=== PATIENT | male | born 1975 | race Caucasian/White ===

== ENCOUNTER → 2019-08-27 | Day surgery (SDC) | payer OTHER ==
[~2019-08-27] MED LIST: ASPIR 8181 MG PO; CENTRUM SILVER1 EAC3 PO; CLINDAMYCIN HC150 MG PO; DEXAMETHASONE SOD PHOS INJ 4 MG/ML VIAL ONE; DOXYCYCLINE HY100 MG PO; FENTANYL CITRATE/PF 100MCG/2 ML INJ ONE; HYDROGEN PEROXIDE 120 ML BTL ONE; HYZAAR 50-12.51 EACH PO; KETOROLAC TROMETHAMINE 30 MG/ML VIAL ONE; LEVAQUIN500 MG PO; LIDOCAINE HCL 2% LOCAL INJ 5 ML SDV VIAL INJ ONE; MIDAZOLAM HCL 2 MG/2 ML VIAL ONE; NIACIN500 M2 PO; ONDANSETRON HCL INJ 2MG/ML 2ML 2 MG/ML VIAL ONE; POTASSIUM PO; PROPOFOL IV EMULSION 10 MG/ML 20 ML VIAL ONE; SEVOFLURANE INHAL SOLN 250 ML PEN BTL ONE; TRELEGY ELLIPT1 EACH INH; VYTORIN 10-101 EACH PO
[2019-08-27 07:03] LABS: BASOPHILS # (AUTO) 0.1 (0.0-0.1); BASOPHILS % 0.5 % (0.0-1.0); EOSINOPHILS # (AUTO) 0.1 (0.0-0.4); EOSINOPHILS % 1.5 % (0.0-6.0); HEMATOCRIT 46.1 % (38.2-49.6); HEMOGLOBIN 15.9 g/dL (14.0-18.0); LYMPHOCYTES # (AUTO) 2.3 (1.0-3.2); LYMPHOCYTES % 24.4 % (18.0-39.1); MEAN CORPUSCULAR HEMOGLOBIN 32.1 pg (28-32); MEAN CORPUSCULAR HGB CONC 34.5 g/dL (31-35); MEAN CORPUSCULAR VOLUME 92.9 fL (81-99); MONOCYTES # (AUTO) 1.2 (0.2-0.8); MONOCYTES % 13.3 % (4.4-11.3); NEUTROPHILS # (AUTO) 5.6 (2.1-6.9); PLATELET COUNT 181 x10e3/uL (140-360); RED BLOOD COUNT 4.96 x10e6/uL (4.3-5.7); RED CELL DISTRIBUTION WIDTH 14.7 % (11.7-14.4)
[2019-08-27 07:22] LABS: ANION GAP 15.2 mmol/L (8-16); BLOOD UREA NITROGEN 14 mg/dL (7-26); BUN/CREATININE RATIO 18 (6-25); CALCIUM 9.4 mg/dL (8.4-10.2); CARBON DIOXIDE 23 mmol/L (22-29); CHLORIDE 103 mmol/L (98-107); CREATININE, SERUM 0.79 mg/dL (0.72-1.25); EST GLOMERULAR FILTRATION RATE > 60 ML/MIN (60-); GLUCOSE 104 mg/dL (74-118); POTASSIUM 4.2 mmol/L (3.5-5.1); SODIUM 137 mmol/L (136-145)
--- NOTE | 2019-08-27 08:34 | Operative Report ---
DATE OF PROCEDURE: 08/27/2019 SURGEON: J Luis Bradford MD PREOPERATIVE DIAGNOSIS: Abscess of the left inner thigh. POSTOPERATIVE DIAGNOSIS: Abscess of the left inner thigh. PROCEDURE PERFORMED: Incision and drainage of abscess of the left thigh. ANESTHESIA: General. ESTIMATED BLOOD LOSS: Minimal. DRAINS: None. COMPLICATIONS: None. INDICATION AND FINDINGS: A 44-year-old male, admitted for incision and drainage of abscess of the left thigh. INTRAOPERATIVE FINDINGS: Partially drained abscess of the left upper inner thigh with some necrotic tissue in the cavity that was debrided and the cavity packed with gauze. DESCRIPTION OF PROCEDURE: With the patient lying on the operative table in a supine position, after administration of general anesthesia, he was prepped and draped with DuraPrep because he was allergic to iodine. The central core of necrotic skin was excised about the diameter of a dime. The abscess was partially drained and very small amount of pus was found that was cultured. There was some small amount of necrotic tissue in the cavity that was debrided. The cavity was irrigated with peroxide and Betadine and then it was packed with a gauze containing saline only. Sterile dressing was applied. The patient tolerated the procedure well, was taken to recovery room in stable condition. MD LEONILA Farrar/GARCIA /[id number]
[2019-08-27 08:50] VITALS: BP 119/70
== END | disposition home or self-care (01) ==
LOC: OR 05:52
PROVIDERS: ATTEND Surgery
DX: L02.416 Cutaneous abscess of left lower limb (principal); Z01.810 Encounter for preprocedural cardiovascular examination; Z01.812 Encounter for preprocedural laboratory examination; Z91.041 Radiographic dye allergy status; J44.9 Chronic obstructive pulmonary disease, unspecified; I10 Essential (primary) hypertension; E78.00 Pure hypercholesterolemia, unspecified; F17.210 Nicotine dependence, cigarettes, uncomplicated; Z80.9 Family history of malignant neoplasm, unspecified; Z82.3 Family history of stroke; Z82.49 Family history of ischemic heart disease and other diseases of the circulatory system; E66.9 Obesity, unspecified; Z68.37 Body mass index [BMI] 37.0-37.9, adult
CPT/HCPCS: 10061; 36415; 80048; 85025; 87071; 87075; 87205; J1100; J1885; J2001; J2250; J2405; J2704; J3010